=== PATIENT | female | born 1990 | race Caucasian/White ===

== ENCOUNTER 2022-03-28 03:14 | Observation (INO) | payer OTHER, SELFPAY ==
--- NOTE | ~2022-03-28 | US_ITS ---
EXAMINATION: US abdomen limited DATE: 03/28/2022 07:40 INDICATION: Right upper quadrant abdominal pain. TECHNIQUE: Multiple grayscale and Doppler ultrasound images of the abdomen were obtained. COMPARISON: None FINDINGS: The visualized portions of the head, body, and tail of the pancreas are normal. The liver i s normal without focal lesion. There is normal flow in main portal vein. The gallbladder is normal in size and contains gallstones. No gallbladder wall thickening or sonographic Rousseau sign. The common duct is normal and measures 5 mm. IMPRESSION: 1. Cholelithiasis. No evidence of acute cholecystitis. Reviewed, dictated and finalized at location A.
[2022-03-28 03:42] VITALS: PULSE 80; RESP 27; O2SAT 99
[2022-03-28 03:43] VITALS: BP 88/74; PULSE 82; RESP 16; O2SAT 99
[2022-03-28 03:45] VITALS: PULSE 85; RESP 25; O2SAT 99
[2022-03-28 03:46] VITALS: BP 104/63; PULSE 81; RESP 18; O2SAT 99
[2022-03-28] MEDS: MORPHINE SULFATE (*CRX) 4 MG/ML INJ IV PUSH (03:49)
[2022-03-28 03:53] LABS: Basophils Percent Auto 0.4 % (0.2-1.2); Eosinophils Absolute Auto 0.1 K/mm3 (0-0.3); Eosinophils Percent Auto 0.9 % (0-4.4); Hematocrit 32.9 % (37.0-47.0); Hemoglobin 11.1 g/dL (12.0-15.0); Immature Granulocyte Absolute 0.11 K/mm3 (0.00-0.031); Immature Granulocyte Percent A 1.2 % (0-0.5); Lymphocytes Absolute Auto 2.04 K/mm3 (0.9-3.2); Lymphocytes Percent Auto 22.6 % (18.3-44.2); Mean Corpuscular HGB Conc 33.7 g/dl (32-36); Mean Corpuscular Hemoglobin 30.6 pg (26-34); Mean Corpuscular Volume 90.6 fl (80-100); Mean Platelet Volume 11.6 fl (7.4-10.4); Monocytes Absolute Auto 0.5 K/mm3 (0.1-0.6); Monocytes Percent Auto 5.1 % (2.6-8.5); Neutrophils Absolute Auto 6.3 K/mm3 (1.3-6.7); Neutrophils Percent Auto 69.8 % (45.5-73.1); Platelet Count Result 187 k/mm3 (150-375); Red Blood Count 3.63 M/mm3 (4.2-5.4); Red Cell Distribution Width 13.1 % (11.5-14.5)
[2022-03-28 04:17] LABS: Alanine Aminotransferase 14 U/L (6-35); Albumin Level 3.9 g/dL (3.5-5.1); Alkaline Phosphatase 93 U/L (38-126); Anion Gap 5 mmol/L (8-16); Aspartate Amino Transferase 32 U/L (14-36); Bilirubin,Total 0.6 mg/dL (0.2-1.3); Blood Urea Nitrogen 7 mg/dL (7-17); Calcium 8.4 mg/dL (8.4-10.2); Carbon Dioxide 20 mmol/L (22-30); Chloride 105 mmol/L (98-107); Estimated Glomerular Filt Rate > 60; Glucose 106 mg/dL (65-110); Lipase 65 U/L (23-300); Potassium 3.8 mmol/L (3.4-5.0); Sodium 130 mmol/L (137-145)
[2022-03-28 04:18] LABS: Troponin I < 0.012 ng/mL (0.000-0.034)
--- NOTE | 2022-03-28 04:47 | ED.GENADULT ---
HPI - General Adult General Chief complaint: Abdominal Pain Stated complaint: chest pain that radiates to back 28 wks Time Seen by Provider: 03/28/22 03:20 History of Present Illness HPI narrative: Patient is a 31-year-old female who presents ER with right upper quadrant pain. Sharp. Radiates to the right shoulder. No vomiting. No fevers or chills or sweats. Has mild discomfort in the chest. Currently 28 weeks . Referred to ER by OB. No alleviating factors. Review of Systems Review of Systems: All systems reviewed & are unremarkable except as noted in HPI and below Constitutional: Constitutional: Denies chills, Denies fatigue and Denies fever(s) Cardiovascular: Cardiovascular: Reports chest pain, Denies rapid heart rate and Denies radiating jaw, neck or arm pain Respiratory: Respiratory: Denies cough and Denies dyspnea Gastrointestinal: Gastrointestinal: Reports abdominal pain, Denies diarrhea, Denies nausea and Denies vomiting Genitourinary: Genitourinary: Denies dysuria and Denies flank pain PMFSH Past Medical History Medical History (Updated 03/28/22 @ 05:06 by Shane Breaux MD) Healthy female adult Surgical History Surgical History (Updated 03/28/22 @ 05:04 by Shane Breaux MD) No pertinent past surgical history Social History Social History (Updated 03/28/22 @ 05:04 by Shane Breaux MD) Smoking status: Never smoker Exam Narrative: GENERAL: Uncomfortable-appearing, well-nourished, and in no acute distress. HEAD: Normocephalic, atraumatic. ENT: Mucous membranes moist. CHEST: Clear to auscultation. No respiratory distress. HEART: Regular rate and rhythm. Normal peripheral pulses. ABDOMEN: Soft, right upper quadrant tenderness with guarding, gravid abdomen. EXTREMITIES: Normal range of motion. No edema. SKIN: Warm, dry, no rash. NEURO: Alert and oriented x3. PSYCH: Normal mood and affect. Course Course Emergency Course: Patient resting more comfortably after morphine. Still with guarding and Rousseau sign on exam. Discussed with OB and recommend admission for observation and ultrasound in the morning. We will keep NPO. Vital Signs Vital signs: Vital Signs Pulse Rate 80 03/28/22 03:42 Respiratory Rate 27 H 03/28/22 03:42 Pulse Oximetry 99 03/28/22 03:42 Temperature 97.1 F L 03/28/22 04:55 Pulse Rate 81 03/28/22 03:46 Respiratory Rate 18 03/28/22 03:46 Blood Pressure 104/63 03/28/22 03:46 Pulse Oximetry 99 03/28/22 03:46 Medical Decision Making Vital Signs Vital Signs: Vital Signs Pulse Rate 80 03/28/22 03:42 Respiratory Rate 27 H 03/28/22 03:42 Pulse Oximetry 99 03/28/22 03:42 Temperature 97.1 F L 03/28/22 04:55 Pulse Rate 81 03/28/22 03:46 Respiratory Rate 18 03/28/22 03:46 Blood Pressure 104/63 03/28/22 03:46 Pulse Oximetry 99 03/28/22 03:46 Lab Data Result diagrams: 03/28/22 03:41 03/28/22 03:41 Labs: Lab Results 03/28/22 03/28/22 Range/Units 03:41 03:41 WBC 9.0 (4.5-10.0) K/mm3 RBC 3.63 L (4.2-5.4) M/mm3 Hgb 11.1 L (12.0-15.0) g/dL Hct 32.9 L (37.0-47.0) % MCV 90.6 (80-100) fl MCH 30.6 (26-34) pg MCHC 33.7 (32-36) g/dl RDW 13.1 (11.5-14.5) % Plt Count 187 (150-375) k/mm3 MPV 11.6 H (7.4-10.4) fl Immature Gran % (Auto) 1.2 H (0-0.5) % Neut % (Auto) 69.8 (45.5-73.1) % Lymph % (Auto) 22.6 (18.3-44.2) % [place] % (Auto) 5.1 (2.6-8.5) % Eos % (Auto) 0.9 (0-4.4) % Baso % (Auto) 0.4 (0.2-1.2) % Lymph # (Auto) 2.04 (0.9-3.2) K/mm3 [place] # (Auto) 0.5 (0.1-0.6) K/mm3 Eos # (Auto) 0.1 (0-0.3) K/mm3 Baso # (Auto) 0.0 (0.0-0.1) K/mm3 Abs Immat Gran (auto) 0.11 H (0.00-0.031) K/mm3 Absolute Neuts (auto) 6.3 (1.3-6.7) K/mm3 Absolute Nucleated RBC 0.0 (0.0-0.012) K/mm3 Nucleated RBC % 0.0 (0.0-0.2) % Sodium 130 L (137-145) mmol/L Potassium 3.8 (3.4-
[2022-03-28 04:55] VITALS: TEMP 36.2
--- NOTE | 2022-03-28 05:00 | ECG_ITS ---
Measurements Intervals [place]man Rate: 77 P: 6 MT: 164 QRS: 16 QRSD: 98 T: 0 QT: 381 QTc: 432 Interpretive Statements SINUS RHYTHM BORDERLINE T WAVE ABNORMALITY- INFERIOR LEADS BASELINE ARTIFACT- I, III BORDERLINE ECG NO PREVIOUS ECG AVAILABLE FOR COMPARISON Electronically Signed On 03-28-2022 6:47:34 CDT by Benjamín Brewer D.O.
[2022-03-28 05:46] VITALS: BP 106/47; PULSE 80; RESP 16; TEMP 36.8
[2022-03-28 06:40] VITALS: BMI 34.8
--- NOTE | 2022-03-28 06:40 | OBADM ---
This patient, Nieves Prince, admitted to the OB room OB Post 116 for observation. Patient/family oriented to hospital policies and general routines including ID bracelet, bed and alarms, visiting hours, pain management, procedures, bathroom and other care routines, personal items, smoking policy, room service/diet, and visiting hours. Patient/Family are encouraged to report perceived risks to care and to ask questions if they do not understand what they are told or what they should do.
--- NOTE | 2022-03-28 07:40 | P.PNOB_ITS ---
OB - PN: Subj Subjective Date/time seen: 03/28/22 07:40 Interval history: awaiting us OB - PN: Obj Data Labs CBC & Chem 7: 03/28/22 03:41 03/28/22 03:41 Labs: Laboratory Results - last 24 hr 03/28/22 03/28/22 03:41 03:41 WBC 9.0 RBC 3.63 L Hgb 11.1 L Hct 32.9 L MCV 90.6 MCH 30.6 MCHC 33.7 RDW 13.1 Plt Count 187 MPV 11.6 H Immature Gran % (Auto) 1.2 H Neut % (Auto) 69.8 Lymph % (Auto) 22.6 [place] % (Auto) 5.1 Eos % (Auto) 0.9 Baso % (Auto) 0.4 Lymph # (Auto) 2.04 [place] # (Auto) 0.5 Eos # (Auto) 0.1 Baso # (Auto) 0.0 Abs Immat Gran (auto) 0.11 H Absolute Neuts (auto) 6.3 Absolute Nucleated RBC 0.0 Nucleated RBC % 0.0 Sodium 130 L Potassium 3.8 Chloride 105 Carbon Dioxide 20 L Anion Gap 5 L BUN 7 Creatinine 0.40 L Estim Creat Clear Calc Not Reportable Estimated GFR > 60 Glucose 106 Calcium 8.4 Total Bilirubin 0.6 AST 32 ALT 14 Alkaline Phosphatase 93 Troponin I < 0.012 Total Protein 7.0 Albumin 3.9 Lipase 65 OB - PN A/P Time Spent With Patient Time: Total time spent is greater than 50% in coordination of care (as documented) at patient's floor/unit and/or counseling patient:
--- NOTE | 2022-03-28 09:01 | PM.IMHP ---
H&P: HPI History of Present Illness Date/Time: 03/28/22 09:01 Chief Complaint: Pain Narrative: 31 y/o G1 at 28 2/7 weeks who had a sudden onset of pain in her right back/side, shooting through to the abdomen on the right. No shortness of breath. She had phoned me while curled up on the cold bathroom floor last night and I asked her to come in. The ED physician said her pain was in the RUQ and he suspected gallbladder disease. We offered overnight observation so we could get a RUQ ultrasound this morning. Review of Systems Review of Systems: All systems reviewed & are unremarkable except as noted in HPI and below PMFSH Past Medical History Medical History Healthy female adult Surgical History Surgical History No pertinent past surgical history Social History Social History Smoking status: Never smoker Meds Home Medications and Allergies Allergies Allergy/AdvReac Type Severity Reaction Status Date / Time codeine Allergy Nausea and Verified 03/28/22 06:45 Vomiting Vital Signs Vital Signs - 24 hr 03/28/22 03:42 03/28/22 03:43 03/28/22 03:45 Temperature Pulse Rate 80 82 85 Respiratory Rate 27 H 16 25 H Blood Pressure 88/74 L Pulse Oximetry 99 99 99 Oxygen Delivery 03/28/22 03:46 03/28/22 04:55 03/28/22 05:46 Temperature 36.2 C L 36.8 C Pulse Rate 81 80 Respiratory Rate 18 16 Blood Pressure 104/63 106/47 L Pulse Oximetry 99 Oxygen Delivery 03/28/22 06:40 03/28/22 06:40 Temperature Pulse Rate Respiratory Rate Blood Pressure Pulse Oximetry Oxygen Delivery Room Air Room Air Exam Const: Orientation/consciousness: patient oriented x3 Other: Well-developed, well-nourished female in no acute distress. Neck: Thyroid: thyroid normal Lymphatic: no lymphadenopathy noted (in neck, axilla or inguinal nodes) Resp: Effort & Inspection: normal respiratory effort Auscultation: clear to auscultation bilaterally Cardio: Rate: regular rate Rhythm: regular rhythm Heart sounds: S1 normal heart sound present and S2 normal heart sound present GI: Other: ABD: Soft, gravid, tender in RUQ to deep palpation. Positive Rousseau's sign. Nondistended. Otherwise, no guarding or rebound tenderness. No hepatosplenomegaly. NST good variability. TOCO: no contractions. : General: Yes no CVA tenderness Other: Deferred. Back/Spine/Pelvis: Back: no CVA tenderness Skin: General skin exam: normal color and no rashes or lesions noted Neuro: General: patient oriented x3 Extrem: Other: Extremities: nontender with no edema Psych: Mental Status: mental status grossly normal Affect: normal affect H&P: Results Labs Labs: Short CBC 03/28/22 Range/Units 03:41 WBC 9.0 (4.5-10.0) K/mm3 Hgb 11.1 L (12.0-15.0) g/dL Hct 32.9 L (37.0-47.0) % Plt Count 187 (150-375) k/mm3 BMP 03/28/22 03:41 Sodium 130 L Potassium 3.8 Chloride 105 Carbon Dioxide 20 L BUN 7 Creatinine 0.40 L Glucose 106 Calcium 8.4 Cardiac Enzymes 03/28/22 Range/Units 03:41 Troponin I < 0.012 (0.000-0.034) ng/mL Liver Function 03/28/22 Range/Units 03:41 Total Bilirubin 0.6 (0.2-1.3) mg/dL AST 32 (14-36) U/L ALT 14 (6-35) U/L Alkaline Phosphatase 93 (38-126) U/L Albumin 3.9 (3.5-5.1) g/dL Assessment and Plan Assessment and plan (1) Cholecystitis: Code(s): K81.9 - Cholecystitis, unspecified Status: Acute Assessment and Plan: A: Cholecystitis at 28 weeks gestation. Pain improved now. Reassuring status. P: We have asked for a general surgery consultation. Reviewed low fat diet. (2) : Code(s): Z34.90 - Encounter for supervision of normal , unspecified, unspecified trimester Status: Acute (3)
[2022-03-28] MEDS: PANTOPRAZOLE SODIUM IV 40 MG VIAL IV PUSH (09:02)
--- NOTE | 2022-03-28 10:08 | PM.CNGS ---
Assessment and Plan Assessment and plan (1) Cholelithiasis affecting in second trimester, antepartum: Code(s): O26.612 - Liver and biliary tract disorders in , second trimester; K80.20 - Calculus of gallbladder without cholecystitis without obstruction Status: Acute Assessment and Plan: exam benign, will start low fat diet, if gagan diet ok to dc home on low fat diet, no s/s acute cholecystitis, cont conservative mgmt hopefully until after delivery History of Present Illness Consult details Consult date: 03/28/22 Reason for consult: gallstones Requesting physician: Lisandro Anthony MD Narrative: The patient is a 31-year-old female, currently 28 weeks , into the emergency department complaining of severe epigastric and right upper quadrant abdominal pain. Patient reports the pain radiates into her right shoulder and is associated with nausea, bloating. The patient denies previous episodes. This is the patient's 1st . Patient reports a family history of biliary disease, including cholecystectomy. Workup, including imaging, is significant for cholelithiasis. Review of Systems Constitutional: Constitutional: Denies anorexia, Denies chills, Denies fatigue, Denies fever(s), Denies lethargy, Denies night sweats, Reports poor appetite, Denies weakness, Denies weight gain and Denies weight loss Eyes: Eyes: Reports no additional eye complaints ENT: Reports system reviewed and no additional complaints, except as documented Cardiovascular: Cardiovascular: Reports no additional cardiovascular complaints Respiratory: Respiratory: Reports no additional respiratory complaints Gastrointestinal: Gastrointestinal: Reports as per HPI, Reports abdominal pain, Reports bloating, Denies change in bowel habits, Reports GI cramping, Reports early satiety, Reports nausea and Denies vomiting Genitourinary: Genitourinary: Reports no additional female genitourinary complaints Musculoskeletal: Musculoskeletal: Reports no additional musculoskeletal complaints Integumentary/Breasts: Skin/Breast: Reports system reviewed and no additional complaints, except as docu Neurologic: Reports system reviewed and no additional complaints, except as documented Psychiatric: Psychiatric: Reports no additional psychiatric complaints Endocrine: Endocrine: Reports no additional endocrine complaints Hematologic/Lymphatic: Hematologic/Lymphatic: Reports no additional hematologic/lymphatic complaints Allergic/Immunologic: Allergic/Immunologic: Reports no additional allergic/immunologic complaints PMFSH Past Medical History Medical History Healthy female adult Surgical History Surgical History No pertinent past surgical history Social History Social History Smoking status: Never smoker Comments FH - biliary dz in females Meds Home Medications and Allergies Allergies Allergy/AdvReac Type Severity Reaction Status Date / Time codeine Allergy Nausea and Verified 03/28/22 06:45 Vomiting Vital Signs Vital Signs - 24 hr 03/28/22 03:42 03/28/22 03:43 03/28/22 03:45 Temperature Pulse Rate 80 82 85 Respiratory Rate 27 H 16 25 H Blood Pressure 88/74 L Pulse Oximetry 99 99 99 Oxygen Delivery 03/28/22 03:46 03/28/22 04:55 03/28/22 05:46 Temperature 36.2 C L 36.8 C Pulse Rate 81 80 Respiratory Rate 18 16 Blood Pressure 104/63 106/47 L Pulse Oximetry 99 Oxygen Delivery 03/28/22 06:40 03/28/22 06:40 Temperature Pulse Rate Respiratory Rate Blood Pressure Pulse Oximetry Oxygen Delivery Room Air Room Air Exam Const: General: cooperative, healthy appearing, comfortable and no acute distress Nutritional Appearance: well nourished Orientation/consciousness: patient oriented x3 HENMT: Head: normal
--- NOTE | 2022-04-17 14:46 | PM.OBDSVD ---
DS: Admitting Diagnosis Discharge Date 03/28/22 Admitting Diagnosis IUP at 28 weeks Abdominal pain DS: Discharge Diagnosis Discharge Diagnosis (1) Cholelithiasis affecting in second trimester, antepartum: Code(s): O26.612 - Liver and biliary tract disorders in , second trimester; K80.20 - Calculus of gallbladder without cholecystitis without obstruction Status: Acute OB - DS: Summary OB Procedures : NST and Ultrasound OB Procedures Intrapartum: Other OB Procedures: : None Time Spent with Patient Time attestation: Total time spent providing and/or coordinating discharge services: Discharge Plan Discharge Attending physician on discharge: Edwin Chester Consulting providers: Montse Martinez ; Edwin Chester ; Benjamín Brewer ; Aj Elmore V. Discharging Clinician: Edwin Chester Patient Disposition: Home, Self-Care Activity: as tolerated Diet: low fat Discharge Instructions: Call or return if temperature above 100.4? F, increased abdominal pain, increased vaginal bleeding or any new problems. Stand Alone Forms: General Discharge Information Follow-up/Referrals: Edwin Chester MD [Physician] - Keep Reg. Scheduled Appt. Discharge Medications: New hydrocodone-acetaminophen 5-325 mg tablet 1 tablet PO Q6H PRN (Reason: pain) Qty: 20 0RF Date of admission: 03/28/22 04:48 Primary Care Provider: Eric,Andrés Perez Admitting Provider: Lisandro Anthony Attending physician on admission: Lisandro Anthony Condition: Stable
== END 2022-03-28 12:33 | disposition home or self-care (01) ==
LOC: ANHED 05:06 → ANHOBPP 05:09
PROVIDERS: Admitting Provider Obstetrics & Gynecology; Emergency Provider Emergency Medicine; PCP Family Medicine; Visit Provider Obstetrics & Gynecology
DX: O99.613 Diseases of the digestive system complicating pregnancy, third trimester (principal); K80.20 Calculus of gallbladder without cholecystitis without obstruction; Z3A.28 28 weeks gestation of pregnancy
CPT/HCPCS: 36415; 76705; 80053; 83690; 84484; 85025; 93005; 96374; 96375; 99285; C9113; G0378; J2270

== ENCOUNTER 2022-05-10 13:58 | Outpatient (RCR) | payer OTHER, SELFPAY ==
[2022-05-10 15:34] VITALS: BP 118/74; PULSE 91
== END 2022-06-28 07:38 | disposition home or self-care (01) ==
LOC: ANHOBOP 13:58
PROVIDERS: PCP Family Medicine; Visit Provider Obstetrics & Gynecology
DX: O36.8130 Decreased fetal movements, third trimester, not applicable or unspecified (principal); Z3A.34 34 weeks gestation of pregnancy
CPT/HCPCS: 59025

== ENCOUNTER 2022-06-11 05:41 | Inpatient (IN) | payer OTHER, SELFPAY ==
[2022-06-11] VITALS (169 sets, daily range): BP systolic 81–147; BP diastolic 36–101; PULSE 35–136; RESP 16–18; TEMP 36.4–36.9; O2SAT 76–100; BMI 37.3
--- NOTE | 2022-06-11 05:41 | LDADM ---
This patient, Nieves Prince, was admitted to Labor/Delivery/Recovery 106 on 06/11/22 at 05:41. Plans for labor, pain management and were discussed with patient. Patient/family oriented to hospital policies and general routines including ID bracelet, bed and alarms, visiting hours, pain management, procedures, bathroom and other care routines, personal items, smoking policy, room service/diet and guest tray routines, security routines, and visiting hours. Patient/Family are encouraged to report perceived risks to care and to ask questions if they do not understand what they are told or what they should do. See OBIX for further documentation.
[2022-06-11 07:05] LABS: Basophils Percent Auto 0.5 % (0.2-1.2); Eosinophils Percent Auto 0.5 % (0-4.4); Hematocrit 35.1 % (37.0-47.0); Hemoglobin 11.9 g/dL (12.0-15.0); Immature Granulocyte Absolute 0.07 K/mm3 (0.00-0.031); Immature Granulocyte Percent A 0.9 % (0-0.5); Lymphocytes Absolute Auto 1.78 K/mm3 (0.9-3.2); Lymphocytes Percent Auto 23.5 % (18.3-44.2); Mean Corpuscular HGB Conc 33.9 g/dl (32-36); Mean Corpuscular Hemoglobin 30.1 pg (26-34); Mean Corpuscular Volume 88.6 fl (80-100); Mean Platelet Volume 11.9 fl (7.4-10.4); Monocytes Absolute Auto 0.5 K/mm3 (0.1-0.6); Monocytes Percent Auto 6.9 % (2.6-8.5); Neutrophils Absolute Auto 5.1 K/mm3 (1.3-6.7); Neutrophils Percent Auto 67.7 % (45.5-73.1); Platelet Count Result 163 k/mm3 (150-375); Red Blood Count 3.96 M/mm3 (4.2-5.4); Red Cell Distribution Width 12.8 % (11.5-14.5); White Blood Count 7.6 K/mm3 (4.5-10.0)
[2022-06-11] MEDS: LACTATED RINGERS 1,000 ML 125 ML IV CONT ×2 (07:44→12:42)
[2022-06-11] MEDS: OXYTOCIN 30 UNITS/NS 500 ML 30 UNITS/500 ML BAG 6 UNITS IV CONT (07:44)
--- NOTE | 2022-06-11 07:44 | P.HP_ITS ---
H&P: HPI History of Present Illness Date/Time: 06/11/22 07:44 Chief Complaint: Induction of labor at term Narrative: 32-year-old 1 para 0 whose last menstrual period was 09/11/2021, EDC is 06/18/2022, confirmed by a 10 week ultrasound presents at 39 weeks gestation for induction of labor. has been complicated by gallstones. She is negative for group B strep and reassuring care has been undertaken. [facility] Past Medical History Medical History Healthy female adult Surgical History Surgical History No pertinent past surgical history Family History Family History Father Hypertension Mother Hypertension Grandparent Cancer Grandparent Diabetes mellitus Social History Social History Smoking status: Never smoker Substance use: never Spiritual care concerns: No Meds Home Medications and Allergies Home Medications Medication Instructions Recorded Confirmed Type prenat.vits,zaida,[id number] 1 tablet PO DAILY 05/18/22 05/18/22 History Allergies Allergy/AdvReac Type Severity Reaction Status Date / Time codeine Allergy Nausea and Verified 05/18/22 13:03 Vomiting Vital Signs Vital Signs - 24 hr 06/11/22 07:00 06/11/22 07:15 06/11/22 07:30 Pulse Rate 94 86 88 Blood Pressure 128/66 130/78 129/67 Exam Const: General: cooperative, healthy appearing and comfortable Orientation/consciousness: oriented to person, oriented to place and oriented to time HENMT: Head: normal to inspection Resp: Effort & Inspection: normal respiratory effort Cardio: Rate: regular rate Rhythm: regular rhythm Heart sounds: S1 normal heart sound present and S2 normal heart sound present GI: Inspection: normal to inspection ( Gravid soft uterus) : External Female Exam: normal external appearance Speculum Exam - Vagina: normal appearance of the vagina Speculum Exam - Cervix: normal appearance of the cervix ( cervix 3/90/1. AROM clear. FHTs reassuring) H&P: Results Labs Labs: Short CBC 06/11/22 Range/Units 06:37 WBC 7.6 (4.5-10.0) K/mm3 Hgb 11.9 L (12.0-15.0) g/dL Hct 35.1 L (37.0-47.0) % Plt Count 163 (150-375) k/mm3 Assessment and Plan Assessment and plan (1) Term : Code(s): Z34.90 - Encounter for supervision of normal , unspecified, unspecified trimester Status: Acute (2) Cholelithiasis affecting in second trimester, antepartum: Code(s): O26.612 - Liver and biliary tract disorders in , second trimester; K80.20 - Calculus of gallbladder without cholecystitis without obstruction Status: Acute Plan medical induction of labor. Spontaneous vaginal delivery is expected. She is an epidural candidate
--- NOTE | 2022-06-11 10:05 | P.PNAN_ITS ---
Anes - Eval Pre Procedure Procedure: labor pain management Date/Time: 06/11/22 10:05 Surgeon: Peña Peñaloza Preop Diagnosis: pain during labor Pre Op Diagnosis: IOL Patient Data Age: 32 Gender: F Height: 1.68 m Weight: 105 kg Last Vital Signs Pulse 79 06/11/22 10:01 BP 115/52 L 06/11/22 10:01 Allergies Allergy/AdvReac Type Severity Reaction Status Date / Time codeine Allergy Nausea and Verified 05/18/22 13:03 Vomiting Home Medications Medication Instructions Recorded Confirmed Type prenat.vits,zaida,[id number] 1 tablet PO DAILY 05/18/22 05/18/22 History Laboratory Tests 06/11/22 06/11/22 06/11/22 06:37 06:37 06:37 WBC 7.6 K/mm3 K/mm3 (4.5-10.0) RBC 3.96 M/mm3 L M/mm3 (4.2-5.4) Hgb 11.9 g/dL L g/dL (12.0-15.0) Hct 35.1 % L % (37.0-47.0) MCV 88.6 fl fl (80-100) MCH 30.1 pg pg (26-34) MCHC 33.9 g/dl g/dl (32-36) RDW 12.8 % % (11.5-14.5) Plt Count 163 k/mm3 k/mm3 (150-375) MPV 11.9 fl H fl (7.4-10.4) Immature Gran % (Auto) 0.9 % H % (0-0.5) Neut % (Auto) 67.7 % % (45.5-73.1) Lymph % (Auto) 23.5 % % (18.3-44.2) [place] % (Auto) 6.9 % % (2.6-8.5) Eos % (Auto) 0.5 % % (0-4.4) Baso % (Auto) 0.5 % % (0.2-1.2) Lymph # (Auto) 1.78 K/mm3 K/mm3 (0.9-3.2) [place] # (Auto) 0.5 K/mm3 K/mm3 (0.1-0.6) Eos # (Auto) 0.0 K/mm3 K/mm3 (0-0.3) Baso # (Auto) 0.0 K/mm3 K/mm3 (0.0-0.1) Abs Immat Gran (auto) 0.07 K/mm3 H K/mm3 (0.00-0.031) Absolute Neuts (auto) 5.1 K/mm3 K/mm3 (1.3-6.7) Absolute Nucleated RBC 0.0 K/mm3 K/mm3 (0.0-0.012) Nucleated RBC % 0.0 % % (0.0-0.2) RPR Pending Blood Type O Positive Antibody Screen Negative Patient hx anesthesia problems: none Family hx anesthesia problems: none Results Review: All pre-operative results and documents have been reviewed as part of the pre- operative evaluation. [facility] Past Medical History Medical History Healthy female adult Surgical History Surgical History No pertinent past surgical history Family History Family History Father Hypertension Mother Hypertension Grandparent Cancer Grandparent Diabetes mellitus Social History Social History Smoking status: Never smoker Substance use: never Spiritual care concerns: No Exam Day of Procedure 06/11/22 10:05
[2022-06-11 10:20] LABS: Rapid Plasma Reagin Non-Reactive (NonReactive)
--- NOTE | 2022-06-11 11:53 | PM.OBPNLAB ---
Pain Control Date/time seen: 06/11/22 11:53 Pain control: tolerating well and epidural Comments: heart rate noted be dipping into the 30s and 60s with mostly being asymptomatic and mom. FHTs reassuring for baby. Will consult with cardiology to see tomorrow Pelvic Exam Dilation (cm): 4 station: 0
[2022-06-11] MEDS: ONDANSETRON INJ 4 MG/2 ML VIAL IV PUSH (18:33)
--- NOTE | 2022-06-11 19:03 | P.PCNOB_ITS ---
OB - Delivery Note Procedure Delivery date: 06/11/22 Procedure: mil Induction method: AROM Delivery augmentation: Pitocin Delivery monitor: External FHT and Internal Uterine Route of delivery: Episiotomy description: None Laceration Description: Vaginal (left lateral first degree) and Superficial Delivery repair: vicryl Specimen: No Quantitative Blood Loss (ml): 59 Anesthesia type: Epidural Disposition: Floor [place] Baby Date of : 06/11/22 Time of : 18:50 Weeks of gestation at delivery: 39 gender: Female presentation: vertex position: Right Occiput Anterior Placenta delivery description: Spontaneous Cord Vessel Description: 3 Vessels and Delayed Cord Clamping score one minute: 9 score five minutes: 9
[2022-06-11] MEDS: WITCH HAZEL 40 PADS 1 PAD TOPICAL (21:17)
[2022-06-11] MEDS: ACETAMINOPHEN 325 MG TABLET 650 MG PO (21:17)
[2022-06-11] MEDS: BENZOCAINE 20% AER SPR (*SP) 56 GM CAN 1 SPRAY TOPICAL (21:18)
--- NOTE | 2022-06-11 21:50 | PC.NURSE ---
Patient transferred to post room #277 via wheelchair. Support person present. Oriented to unit, room, information board, rooming in, admission packet and security measures. Patient verbalizes understanding.
[2022-06-11] MEDS: IBUPROFEN 600 MG TABLET PO (22:19)
[2022-06-12 01:00] VITALS: BP 109/56; PULSE 78; RESP 18; TEMP 36.7
[2022-06-12 05:35] VITALS: BP 105/62; PULSE 73; RESP 18; TEMP 36.6
[2022-06-12] MEDS: IBUPROFEN 600 MG TABLET PO ×2 (05:36→12:27)
[2022-06-12 05:53] LABS: Hematocrit 31.6 % (37.0-47.0); Hemoglobin 10.5 g/dL (12.0-15.0)
[2022-06-12 07:35] VITALS: BP 120/68; PULSE 67; RESP 18; TEMP 36.9; O2SAT 98
--- NOTE | 2022-06-12 07:44 | PM.OBPNVD ---
OB - PN: Subj Subjective Date/time seen: 06/12/22 07:44 Patient comments: no complaints and pain well controlled baby status: doing well and nursing well OB - PN: Obj Data Labs CBC & Chem 7: 06/12/22 05:39 Labs: Laboratory Results - last 24 hr 06/11/22 06/11/22 06/12/22 06:37 06:37 05:39 Hgb 10.5 L Hct 31.6 L RPR Non-reactive Blood Type O Positive Antibody Screen Negative OB - PN A/P Plan day: 1 Comments: await cardiology consult for Maternal arrhythmia Time Spent With Patient Time: Total time spent is greater than 50% in coordination of care (as documented) at patient's floor/unit and/or counseling patient: Exam Const: General: cooperative, healthy appearing and comfortable Orientation/consciousness: oriented to person, oriented to place and oriented to time Resp: Effort & Inspection: normal respiratory effort GI: Inspection: normal to inspection ( fundus firm below the umbilicus)
[2022-06-12] MEDS: DOCUSATE SODIUM 100 MG CAPSULE PO ×2 (09:15→17:40)
[2022-06-12] MEDS: MULTIVIT/MIN/PREN/FOL AC/IRON TABLET 1 TAB PO (09:15)
[2022-06-12] MEDS: ACETAMINOPHEN 325 MG TABLET 650 MG PO ×2 (09:15→17:40)
--- NOTE | 2022-06-12 10:36 | WPDANLDPN2 ---
Anes-Prog Note L&D Date/Time: 06/12/22 10:36 Comfortable throughout: labor and delivery Neuraxial method: epidural Epidural/Spinal procedure site: clean & non-tender Neuro status: Neuro function grossly intact. Cardiovascular status: normal Respiratory status: normal Airway patency: baseline Mental status: baseline Post-Op hydration status: normal Vital Signs: Last Vital Signs Temp 36.9 C 06/12/22 07:35 Pulse 67 06/12/22 07:35 Resp 18 06/12/22 07:35 BP 120/68 06/12/22 07:35 Pulse Ox 98 06/12/22 07:35 O2 Del Method Room Air 06/12/22 08:00 Pain score (VAS): 0 I/O: Intake & Output 06/11/22 06/12/22 06/12/22 23:59 07:59 15:59 Output Total 50 Balance -50 Patient feedback: Patient satisfied with anesthetic care.
[2022-06-12 11:35] VITALS: BP 133/81; PULSE 82; RESP 16; TEMP 36.7; O2SAT 98
[2022-06-12 15:35] VITALS: BP 124/79; PULSE 78; RESP 16; TEMP 36.8; O2SAT 99
--- NOTE | 2022-06-12 15:36 | ECG_ITS ---
Measurements Intervals [place] Rate: 76 P: -2 [place]: 144 QRS: 21 QRSD: 93 T: 3 QT: 354 QTc: 399 Interpretive Statements SINUS RHYTHM ATRIAL PREMATURE COMPLEXES CONSIDER INFERIOR INFARCT, AGE INDETERMINATE ABNORMAL ECG COMPARED TO ECG 03/28/2022 03:27:33 NO SIGNIFICANT CHANGES Electronically Signed On 06-12-2022 17:27:12 CIRCUIT BOARD REPAIR TECHNICIAN by Benjamín Brewer D.O.
--- NOTE | 2022-06-12 16:06 | PM.CNCAR ---
Assessment and Plan Assessment and plan (1) Premature atrial contraction: Code(s): I49.1 - Atrial premature depolarization Status: Acute Plan Telemetry strip from yesterday showing atrial bigeminy with PACs. EKG obtained today shows sinus rhythm with a premature atrial contraction (PAC). Patient was asymptomatic yesterday at the time of the event and does not have cardiac symptoms at this time. No other significant arrhythmias or bradycardia seen. PACs are benign and given patient was asymptomatic, would not treat. Recommend to keep electrolytes optimized. If during patient's hospital stay, she is noted to have frequent PACs, then would send patient home with a heart monitor. Otherwise, no further intervention or evaluation warranted. History of Present Illness History of Present Illness Consult date/time: 06/12/22 16:06 Requesting physician: Edwin Chester MD Consult reason: Other (bradycardia) Reason For Visit: IOL Narrative: We are being consulted for bradycardia. This is a 32-year-old female with no prior medical history who just had a vaginal delivery yesterday. Prior to the administration of epidural, patient was noted to be bradycardia with HR reported as low as 30. Patient states she was asymptomatic at that time and feeling well. No further issues with bradycardia noted. Patient denies any prior cardiac history. No cardiac issues during her . Patient states she is feeling well this afternoon. Does not have any lightheadedness/dizziness or palpitations. Telemetry strip saved from yesterday shows atrial bigeminy. EKG obtained this afternoon shows sinus rhythm with a PAC. Troponin was obtained, which was negative. Review of Systems Review of Systems: 12-point ROS obtained. Negative, unless stated in HPI. [facility] Past Medical History Medical History Healthy female adult Surgical History Surgical History No pertinent past surgical history Family History Family History Father Hypertension Mother Hypertension Grandparent Cancer Grandparent Diabetes mellitus Social History Social History Smoking status: Never smoker Substance use: never Lack of Transportation: No Lack of Food: Never True Current Housing: I Have Housing Concerned About Future Housing: No Difficulty Paying Gas/Electric Bills: No Difficulty Paying for Meds: No Currently Unemployed: No Education: Bachelor's Degree Difficulty w/ Childcare or Family Care: No Spiritual care concerns: No Meds Home Medications and Allergies Home Medications Medication Instructions Recorded Confirmed Type prenat.vits,zaida,[id number] 1 tablet PO DAILY 05/18/22 05/18/22 History Allergies Allergy/AdvReac Type Severity Reaction Status Date / Time codeine Allergy Nausea and Verified 05/18/22 13:03 Vomiting Vital Signs Vital Signs - 24 hr 06/11/22 16:10 06/11/22 16:15 06/11/22 16:16 Temperature Pulse Rate Respiratory Rate Blood Pressure 118/101 H Pulse Oximetry 100 98 Oxygen Delivery 06/11/22 16:20 06/11/22 16:25 06/11/22 16:30 Temperature Pulse Rate Respiratory Rate Blood Pressure Pulse Oximetry 99 99 99 Oxygen Delivery 06/11/22 16:31 06/11/22 16:35 06/11/22 16:40 Temperature Pulse Rate 75 Respiratory Rate Blood Pressure 106/42 L Pulse Oximetry 99 99 Oxygen Delivery 06/11/22 16:45 06/11/22 16:46 06/11/22 16:50 Temperature Pulse Rate 75 Respiratory Rate Blood Pressure 103/56 L Pulse Oximetry 99 99 Oxygen Delivery 06/11/22 16:55 06/11/22 17:00 06/11/22 17:01 Temperature Pulse Rate 77 Respiratory Rate Blood Pressure 84/51 L Pulse Oximetry 99 99 Oxygen Delivery
[2022-06-12 20:15] VITALS: BP 112/57; PULSE 82; RESP 18; TEMP 36.8
[2022-06-13] MEDS: IBUPROFEN 600 MG TABLET PO (04:57)
--- NOTE | 2022-06-13 05:05 | PC.NURSE ---
Patient viewed the discharge video Mother & Baby Care, The First Two Weeks . Patient was given the opportunity and encouraged to ask questions. Patient verbalized understanding of information shared and has been given the mother/baby guide for home reference.
--- NOTE | 2022-06-13 07:51 | PM.OBPNVD ---
OB - PN: Subj Subjective Date/time seen: 06/13/22 07:51 Patient comments: no complaints and pain well controlled baby status: doing well and nursing well OB - PN: Obj Data Labs CBC & Chem 7: 06/12/22 05:39 OB - PN A/P Plan day: 1 Plan: routine care Time Spent With Patient Time: Total time spent is greater than 50% in coordination of care (as documented) at patient's floor/unit and/or counseling patient: Time with patient: less than 15 minutes Exam Const: General: cooperative, healthy appearing and comfortable Nutritional Appearance: average body habitus Orientation/consciousness: oriented to person, oriented to place and oriented to time HENMT: Head: normal to inspection Resp: Effort & Inspection: normal respiratory effort GI: Inspection: normal to inspection (Fundus firm below the umbilicus) Auscultation: normal bowel sounds
--- NOTE | 2022-06-13 07:54 | PM.DS ---
DS: Admitting Diagnosis Discharge Date 06/13/2022 Admitting Diagnosis Term /arrhythmia DS: Discharge Diagnosis Discharge Diagnosis (1) Premature atrial contraction: Code(s): I49.1 - Atrial premature depolarization Status: Acute (2) Term : Code(s): Z34.90 - Encounter for supervision of normal , unspecified, unspecified trimester Status: Acute DS: Summary Hospital Course Reason for hospitalization: Patient was admitted at term for induction of labor. Hospital Course: Patient was admitted and underwent spontaneous vaginal delivery. During her labor she had some bradycardic episodes. Her hospital course was otherwise unremarkable. She was seen by Cardiology who felt these were simply PACs. I have explained to the patient to follow-up with them if she becomes symptomatic as these were fairly long episodes of bradycardia. Time Spent with Patient Time attestation: Total time spent providing and/or coordinating discharge services: Exam Const: General: cooperative, healthy appearing and comfortable Nutritional Appearance: average body habitus Orientation/consciousness: oriented to person, oriented to place and oriented to time HENMT: Head: normal to inspection GI: Inspection: normal to inspection Discharge Plan Discharge Attending physician on discharge: Edwin Chester Consulting providers: Cindy Fields Discharging Clinician: Edwin Chester Patient Disposition: Home, Self-Care Activity: may shower and no straining Diet: heart healthy Patient Instructions: Antibiotic Form Stand Alone Forms: General Discharge Information Follow-up/Referrals: Edwin Chester MD [Physician] - Discharge Medications: Continued #2 Tablet 1 tablet PO DAILY Date of admission: 06/11/22 05:41 Primary Care Provider: EricAndrés Admitting Provider: Edwin Chester Attending physician on admission: Edwin Chester Condition: Stable
[2022-06-13] MEDS: DOCUSATE SODIUM 100 MG CAPSULE PO (08:42)
[2022-06-13 08:50] VITALS: BP 121/79; PULSE 74; RESP 16; TEMP 36.8; O2SAT 100
[2022-06-13] MEDS: MEASLES,MUMPS,RUBELLA VACCINE 0.5 ML VIAL SUB-Q (11:06)
[2022-06-14 07:51] VITALS: BP 133/77; PULSE 82; RESP 16; TEMP 36.9; O2SAT 97
== END 2022-06-13 13:35 | disposition home or self-care (01) | DRG 807 ==
LOC: ANHLDR 05:44 → ANHOB2 21:56
PROVIDERS: Admitting Provider Obstetrics & Gynecology; PCP Family Medicine; Visit Provider Obstetrics & Gynecology
DX: O99.42 Diseases of the circulatory system complicating childbirth (principal); Z37.0 Single live birth; I49.1 Atrial premature depolarization; O99.62 Diseases of the digestive system complicating childbirth; K80.20 Calculus of gallbladder without cholecystitis without obstruction; O70.0 First degree perineal laceration during delivery; Z3A.39 39 weeks gestation of pregnancy
CPT/HCPCS: 36415; 85014; 85018; 85025; 86592; 86850; 86900; 86901; 90710; 93005; A9270; J2405; J2590; J2795; J7120

== ENCOUNTER 2022-07-15 00:55 | Day surgery (SDC) | payer OTHER, SELFPAY ==
[2022-07-02 14:32] VITALS: BMI 34.7
--- NOTE | 2022-07-02 14:36 | PC.NURSE ---
Report to the Outpatient Waiting Room, entrance under the green pavilion located off [facility], at time 1000 on date 07/15/22. Planned Procedure Time: 1200. Time changes happen often and if your time is changed the preop area will call you the afternoon before. - You and your visitor will be asked to self-screen and do not enter if you have any COVID symptoms. - Only one visitor is requested with a max of two and NO children visitors are allowed at this time. - The patient visitor may be requested to leave or wait in car when not with patient due to distancing restrictions. - A mask is optional within the hospital. Patients may have clear liquids (water, carbonated beverages, clear teas, apple juice) until 3 hours prior to surgery with a maximum of 20 ounces. - No food from midnight until time of surgery Take the following medications with a SIP of water the morning of surgery: NONE Medications to discontinue per physician: VITAMIN Date to take last dose: 07/11/22 Please no make-up, nail korean, hairspray, perfume, deodorant, or body powder the day of surgery. No jewelry (including any body piercings) or valuables the day of surgery, leave them at home. Please take a shower or bath the night before, or the morning of, surgery with an antibacterial soap (HIBICLENS). Wear comfortable, loose fitting clothing. - Jewelry must be removed prior to entering the operating room. Rings and piercings that are not removed may be cut off. - The hospital will not accept responsibility for valuables. - Please leave all valuables, including medications, at home the day of surgery. If you are going home after surgery, a licensed chain saw driver must drive you home. - NO public transportation without another adult if you receive anesthesia. - We recommend that an adult stay with you for 24 hours following discharge. - We also recommend that you do not drive, make important decision, drink alcoholic beverages, or take any drugs that were not prescribed by your health care provider for at least 24 hours after your discharge time. Follow any additional instructions given to you from your surgeon. If you or anyone in your household have experienced Covid symptoms in the past week, please notify your surgeon or the nurse liaison at the phone number below for possible testing. Telephone instructions given to PT - YOUNG TOMPKINS and asked if any additional questions and then verbalized understanding. Patient advised to call surgeon office or pre surgery nurse liaison [phone] if any additional questions.
[2022-07-15] VITALS (9 sets, daily range): BP systolic 112–139; BP diastolic 64–85; PULSE 58–87; RESP 15–22; TEMP 36.1–36.2; O2SAT 98–100
[2022-07-15] MEDS: ACETAMINOPHEN 500 MG TABLET 1000 MG PO (10:24)
[2022-07-15] MEDS: KETOROLAC 15 MG/ML VIAL (*BKC) IV PUSH (10:45)
[2022-07-15] MEDS: LACTATED RINGERS 1,000 ML 30 ML IV CONT ×2 (10:45→13:30)
--- NOTE | 2022-07-15 10:53 | P.PNAN_ITS ---
Anes - Initial Pre Proc Eval Procedure: Operation Date: 07/15/22 12:00 Proposed Procedures p Laparoscopic Cholecystectomy, Possible Open - Kojo Nichols DO Date/Time: 07/15/22 10:53 Surgeon: Kojo Nichols DO Pre Op Diagnosis: Symptomatic Cholecystitis Patient Data Age: 32 Gender: F Height: 1.68 m Weight: 97.52 kg Allergies Allergy/AdvReac Type Severity Reaction Status Date / Time codeine AdvReac Nausea and Verified 07/15/22 10:21 Vomiting Home Medications Medication Instructions Recorded Confirmed Type prenat.vits,zaida,[id number] 1 tablet PO DAILY 05/18/22 07/15/22 History hydrocodone 5 mg-acetaminophen 325 1 tablet PO Q6-8H 07/15/22 07/15/22 History mg tablet Patient hx anesthesia problems: none Family hx anesthesia problems: none Results Review: All pre-operative results and documents have been reviewed as part of the pre- operative evaluation. [facility] Surgical History Surgical History No pertinent past surgical history Family History Family History Father Hypertension Mother Hypertension Grandparent Cancer Grandparent Diabetes mellitus Social History Social History Smoking status: Never smoker Alcohol intake: current Alcohol use details: 2/MONTH Substance use: never Substance use type: does not use Lack of Transportation: No Lack of Food: Never True Current Housing: I Have Housing Concerned About Future Housing: No Difficulty Paying Gas/Electric Bills: No Difficulty Paying for Meds: No Currently Unemployed: No Education: Bachelor's Degree Difficulty w/ Childcare or Family Care: No Living arrangements: with family Spiritual care concerns: No Anes - Eval Final PreProcedure Day of Procedure 07/15/22 10:53 Patient weight: overweight Heart: regular rate and rhythm Lungs: clear to auscultation Airway: Mallampati scale class II Neurological: alert and oriented Last oral intake: >/= 8 hours ASA classification: II Emergent: no Anesthetic plan: proceed Anesthesia type and monitoring: general ETT and standard monitoring Results Review: All pre-operative results and documents have been reviewed as part of the pre- operative evaluation. Informed Consent: The patient's anesthetic plan and its attendant risks and benefits were discussed with the patient/family/POA. Questions were solicited and answers provided to the satisfaction of the patient/family/POA.
[2022-07-15 11:07] LABS: Alanine Aminotransferase 40 U/L (6-35); Albumin Level 4.4 g/dL (3.5-5.1); Alkaline Phosphatase 133 U/L (38-126); Amylase 51 U/L (30-110); Aspartate Amino Transferase 35 U/L (14-36); Bilirubin,Total 0.5 mg/dL (0.2-1.3); Lipase 66 U/L (23-300)
--- NOTE | 2022-07-15 11:34 | PM.IMHP ---
H&P: HPI History of Present Illness Date/Time: 07/15/22 11:34 Chief Complaint: Symptomatic cholelithiasis Narrative: 32 yo woman presents for laparoscopic cholecystectomy. She was last seen while she was . She delivered 1 month ago and denies any other changes since last being seen. Review of Systems Review of Systems: All systems reviewed & are unremarkable except as noted in HPI and below Constitutional: Constitutional: Denies chills, Denies fever(s), Denies headache(s) and Denies weight loss Eyes: Eyes: Denies change in vision ENT: Denies dizziness, Denies headache(s), Denies neck mass and Denies throat swelling Cardiovascular: Cardiovascular: Denies chest pain, Denies lightheadedness and Denies dyspnea Respiratory: Respiratory: Denies cough, Denies dyspnea and Denies wheezing Gastrointestinal: Gastrointestinal: Denies abdominal pain, Denies change in bowel habits, Denies nausea and Denies vomiting Genitourinary: Genitourinary: Denies hematuria and Denies dysuria Musculoskeletal: Musculoskeletal: Reports as per HPI Integumentary/Breasts: Skin/Breast: Reports as per HPI Neurologic: Denies dizziness and Denies headache(s) Allergic/Immunologic: Allergic/Immunologic: Denies throat swelling and Denies wheezing PMFSH Surgical History Surgical History No pertinent past surgical history Family History Family History Father Hypertension Mother Hypertension Grandparent Cancer Grandparent Diabetes mellitus Social History Social History Smoking status: Never smoker Alcohol intake: current Alcohol use details: 2/MONTH Substance use: never Substance use type: does not use Lack of Transportation: No Lack of Food: Never True Current Housing: I Have Housing Concerned About Future Housing: No Difficulty Paying Gas/Electric Bills: No Difficulty Paying for Meds: No Currently Unemployed: No Education: Bachelor's Degree Difficulty w/ Childcare or Family Care: No Living arrangements: with family Spiritual care concerns: No Meds Home Medications and Allergies Home Medications Medication Instructions Recorded Confirmed Type prenat.vits,zaida,[id number] 1 tablet PO DAILY 05/18/22 07/15/22 History hydrocodone 5 mg-acetaminophen 325 1 tablet PO Q6-8H 07/15/22 07/15/22 History mg tablet Allergies Allergy/AdvReac Type Severity Reaction Status Date / Time codeine AdvReac Nausea and Verified 07/15/22 10:21 Vomiting Vital Signs Vital Signs - 24 hr 07/15/22 10:22 Temperature 36.2 C L Pulse Rate 86 Respiratory Rate 20 Blood Pressure 139/85 Pulse Oximetry 100 Oxygen Delivery Room Air Exam Const: General: no acute distress and alert Orientation/consciousness: patient oriented x3 HENMT: Head: normocephalic and atraumatic Ears: hearing grossly normal bilaterally Face/Nose/Sinus: Normal nares present Mouth: Yes Normal oral and palatal mucosa present Eyes: Periorbital: periorbital findings normal Sclera: sclerae normal EOM: EOMs intact bilaterally Neck: Neck: normal visual inspection, no lymphadenopathy and trachea midline Chest: Chest palpation & inspection: normal inspection of the chest Resp: Effort & Inspection: normal respiratory effort Auscultation: clear to auscultation bilaterally Cardio: Jugular venous distension: no JVD Rate: regular rate Rhythm: regular rhythm Heart sounds: S1 normal heart sound present and S2 normal heart sound present Peripheral pulses: Peripheral pulses 2+ throughout GI: Inspection: normal to inspection GI Palp: Yes Soft to palpation, No Tenderness to palpation present (GI), No Guarding due to palpation present (GI) and No Rebound tenderness present Percussion: Yes normal to percussion Auscultation: normal bowel sounds : G
--- NOTE | 2022-07-15 11:36 | WPDHPUPDATE1 ---
History and Physical Update Update Date/Time: 07/15/22 11:36 History and Physical has been reviewed, including an updated exam of the patient. There are NO changes in the patient's condition. Risks, benefits, and alternatives have been discussed and questions answered. Patient agrees to proceed with procedure.
[2022-07-15] MEDS: ceFAZolin 2 GM/D5W 50 ML 2 GM/50 ML BAG IVPB (12:01)
[2022-07-15] MEDS: BUPIVACAINE/EPINEPHRINE 0.5% 10 ML VIAL 30 ML INFILTRATE (12:40)
--- NOTE | 2022-07-15 12:49 | W.PM.PROC2 ---
Procedure Note - Detailed Date of Procedure 07/15/22 Pre-op Diagnosis Symptomatic Cholelithiasis Post-op Diagnosis Same Procedure Performed Laparoscopic Cholecystectomy Surgeon Kojo Nichols, DO Anesthesia General and Local (0.5% bupivacaine) Indications This is a 32-year-old woman who presented with right upper quadrant abdominal pain for the past several months. She had couple episodes back in March that were related to eating fried or greasy food. Workup showed evidence of cholelithiasis. She was 31 weeks at that time and discussions were made with the patient and decision was made to treat with dietary modifications until it was safe to proceed with surgery. She delivered her child 1 month ago and is still having occasional pains. Discussions were made with the patient about treatment options and decision was made to proceed with laparoscopic cholecystectomy, possible open. Findings Laparoscopic cholecystectomy was performed. The patient had a few pericholecystic adhesions but the gallbladder did not appear acutely inflamed. The gallbladder was partially intrahepatic. The cystic duct appeared normal in size. There were multiple small stones within the gallbladder. The gallbladder was removed and sent to the lab for pathology. Description of Procedure Procedure as well as risks, benefits, and alternatives were discussed with patient. Written consent was obtained and placed in chart prior to procedure. The patient was brought back to surgical suite. Patient was placed in supine position on operating table. Time-out was done to confirm patient and procedure. Patient was then intubated by the anesthesia department. Abdomen was prepped and draped in sterile fashion using chlorhexidine prep. 0.5% bupivacaine with epinephrine was infiltrated at each site of incision. A 5 millimeter incision was made near the umbilicus, and a 5 millimeter Optiview trocar was advanced through the abdominal layers under direct visualization. Once inside the abdominal cavity, carbon dioxide was insufflated to create a pneumoperitoneum. The camera was inserted and the abdomen was inspected. No immediate abnormalities were identified. The patient was placed in reverse Trendelenburg position and rotated slightly to the left. An 11 millimeter incision was made in the subxiphoid region, and an 11 millimeter trocar was inserted under direct visualization. Two 5 millimeter incisions were made in the right upper quadrant, and two 5 millimeter trocars were inserted under direct visualization. The gallbladder was identified and grasped at the fundus and retracted superiorly. It was then grasped at the infundibulum retracted laterally. Careful dissection around the neck of the gallbladder was performed using blunt dissection with a [place] grasper and hook electrocautery. The cystic duct was identified, and a window was created behind it. The cystic artery was also identified and a window was created behind it. The critical view of safety was identified, visualizing the cystic duct running directly into the neck of the gallbladder, and the cystic artery running directly into the wall of the gallbladder. A 5 millimeter clip retail parts professional was then used to place 2 clips proximally and 1 clip distally on both the cystic duct and cystic artery. They were then both transected using endoscopic scissors. Once safely away from the jordyn hepatitis, the gallbladder was dissected free from the liver bed using hook electrocautery. Hemostasis was achieved along the way. The gallbladder was removed completely and then removed through the subxiphoid port. The liver bed was then inspected. Hemostasis appeared adequate, and our clips appeared secure. The area was gently irrigated with sterile saline. No other abnormalities were seen. The patient was flattened out in bed, and 1 final inspection was made around the abdominal cavity. The subxiphoid port was removed, and a Destin Lozoya
[2022-07-15] MEDS: fentaNYL CITRATE INJ (*CRX) 100 MCG/2 ML VIAL 25 MCG IV PUSH ×4 (13:05→13:20)
[2022-07-15] MEDS: oxyCODONE HCL (*CRX) 5 MG TAB IR PO (14:13)
== END 2022-07-15 15:03 | disposition home or self-care (01) ==
PROVIDERS: PCP Family Medicine; Visit Provider Surgery
PROC: 0FT44ZZ Resection of Gallbladder, Percutaneous Endoscopic Approach (ICD-10-PCS; CPT 47562; principal; 2022-07-15 12:00)
DX: K80.10 Calculus of gallbladder with chronic cholecystitis without obstruction (principal)
CPT/HCPCS: 47562; 36415; 80076; 82150; 83690; 86850; 86900; 86901; 88304; A9270; J0690; J1100; J1885; J2250; J2405; J2704; J3010; J7120